=== PATIENT | female | born 1940 | race Caucasian/White ===

== ENCOUNTER 2016-12-05 16:28 | Emergency (ER) | payer OTHER ==
[2016-12-05 16:38] VITALS: RESP 16
--- NOTE | 2016-12-05 16:47 | CPEKG ---
Heart Rate: 77 RR Interval: 779 P-R Interval: 156 QRSD Interval: 90 QT Interval: 368 QTC Interval: 417 P [place]: 39 QRS [place]: 18 T Wave [place]: 34 EKG Severity - ABNORMAL ECG - EKG Impression: SINUS RHYTHM EKG Impression: MULTIPLE ATRIAL PREMATURE COMPLEXES Electronically Signed By: Chavo Zarco 05-Dec-2016 19:10:10
[2016-12-05] MEDS ORDERED: NS 500 ML IV ONE (17:10)
[2016-12-05] MEDS ORDERED: ASPIRIN 81 MG CHEWABLE TAB PO ONE (17:10)
--- NOTE | 2016-12-05 17:13 | EDPHY ---
H & P Stated Complaint: right sided CP since 1400 today Time Seen by Provider: 12/05/16 16:46 HPI/ROS: CHIEF COMPLAINT: Epigastric pain HISTORY OF PRESENT ILLNESS: The patient is a 76-year-old healthy female who comes to the emergency department complaining of epigastric discomfort that began around 2:00 p.m.. It began while she was walking at a rapid speed. She states that she has had this discomfort to 3 x 4 usually at night. She thought that it may be heartburn but it is different than her typical heartburn. He does not have an acidic type feeling. She thinks that maybe gas or possibly from an upper respiratory tract infection she has had for the last 2 weeks. She states that it has been improving on Mucinex. She has not been febrile. She has not been coughing. She denies shortness of breath. She denies diaphoresis. The pain does not radiate. She classifies her pain is mild. She has never had any cardiac disease. She has a history of cholecystectomy and gallstone pancreatitis in 2000 but no problems since. No nausea, vomiting or diarrhea. REVIEW OF SYSTEMS: Constitutional: denies: chills, fever, recent illness, recent injury EENTM: denies: blurred vision, double vision, nose congestion Respiratory: denies: cough, shortness of breath Cardiac: See HPI, no irregular heart rate, lightheadedness, palpitations Gastrointestinal/Abdominal: See HPI Genitourinary: denies: dysuria, frequency, hematuria, pain Musculoskeletal: denies: joint pain, muscle pain Skin: denies: lesions, rash, jaundice, bruising Neurological: denies: headache, numbness, paresthesia, tingling, dizziness, weakness Hematologic/Lymphatic: denies: blood clots, easy bleeding, easy bruising Immunologic/allergic: denies: HIV/AIDS, transplant EXAM: GENERAL: Well-appearing, well-nourished and in no acute distress. HEAD: Atraumatic, normocephalic. EYES: Pupils equal round and reactive to light, extraocular movements intact, sclera anicteric, conjunctiva are normal. ENT: TMs normal, nares patent, oropharynx clear without exudates. Moist mucous membranes. NECK: Normal range of motion, supple without lymphadenopathy or JVD. LUNGS: Breath sounds clear to auscultation bilaterally and equal. No wheezes rales or rhonchi. HEART: Regular rate and rhythm without murmurs, rubs or gallops. ABDOMEN: Soft, nontender, normoactive bowel sounds. No guarding, no rebound. No masses appreciated. BACK: No CVA tenderness, no spinal tenderness, step-offs or deformities EXTREMITIES: Normal range of motion, no pitting or edema. No clubbing or cyanosis. NEUROLOGICAL: Cranial nerves II through XII grossly intact. Normal speech, normal gait. 5/5 strength, normal movement in all extremities, normal sensation PSYCH: Normal mood, normal affect. SKIN: Warm, dry, normal turgor, no visible rashes or lesions. Source: Patient Exam Limitations: No limitations - Personal History Current Tetanus/Diphtheria Vaccine: Unsure Current Tetanus Diphtheria and Acellular Pertussis (TDAP): Unsure - Medical/Surgical History Hx Asthma: No Hx Chronic Respiratory Disease: No Hx Diabetes: No Hx Cardiac Disease: No Hx Renal Disease: No Hx Cirrhosis: No Hx Alcoholism: No Hx HIV/AIDS: No Hx Splenectomy or Spleen Trauma: No Other PMH: back surgery, fractures R hip 2001, pancreatitis - Family History Significant Family History: Hypertension - Social History Smoking Status: Never smoked Alcohol Use: Sober Drug Use: None Constitutional: Initial Vital Signs Temperature (C) 37.0 C 12/05/16 16:33 Heart Rate 85 12/05/16 16:33 Respiratory Rate 16 12/05/16 16:33 Blood Pressure 197/111 H 12/05/16 16:33 O2 Sat (%) 97 12/05/16 16:33 O2 Delivery Mode Room Air Allergies/Adverse Reactions: orphenadrine citrate [From Norflex] Allergy (Verified 07/30/15 10:49) Penicillins Allergy (Verified 07/30/15 10:49) Home Medications: Medication Instructions Recorded SIMVASTATIN 07/30/15 Medical Decision Making - Diagnostics EKG Interpretation: An EKG obtained and was read and documented in trace view. Please see trace view for full reading and report. Sinus rhythm, premature atrial complex, no acute ischemic changes. Imaging: Results: CT scan of the chest angiogram was obtained. The results of the study are negative for PE. The study was read by Dr. Mj Gimenez. I viewed the images myself on the PACS system. X-ray: chest x-ray was obtained. I viewed the images myself on the PACS system. My interpretation of the images is: negative for acute disease . The radiologist interpretation is pending. ED Course/Re-evaluation: 7:10 p.m. we discussed the patient's CT and lab results which are reassuring. She feels much better. She is currently symptom free. She is eager to go home. I recommended admission for rule out versus is a delta troponin. She agrees to stay and have her 2nd troponin drawn at 8:00 p.m.. This should get does down to a myocardial infarction miss rate of only 5-6%. She feels comfortable with this. She has an appointment to follow up with her doctor tomorrow and will schedule an outpatient stress test with them. I agree with this plan. 8:55 p.m. the patient is repeat troponin is negative. This is reassuring since her pain began 7 hours ago discussed strict return precautions. Additional verbal discharge instructions given. Differential Diagnosis: Partial list of the Differential diagnosis considered include but were not limited to; acute coronary disease, PE, indigestion, gas, GERD and although unlikely based on the history and physical exam, I also considered peptic ulcer , dissection, aneurysm, pneumonia. I discussed these differential diagnoses and the plan with the patient as well as the usual and expected course. The patient understands that the diagnosis is provisional and that in medicine we are not always correct and that further workup is often warranted. Usual and customary warnings were given. All of the patient's questions were answered. The patient was instructed to return to the emergency department should the symptoms at all worsen or return, otherwise to followup with the physician as we discussed. - Data Points Laboratory Results: Laboratory Results 12/05/16 16:55 12/05/16 16:55 12/05/16 12/05/16 20:00 16:55 WBC 4.98 10^3/uL (3.80-9.50) RBC 4.59 10^6/uL (4.18-5.33) Hgb 14.8 g/dL (12.6-16.3) Hct 42.7 % (38.0-47.0) MCV 93.0 fL (81.5-99.8) MCH 32.2 pg (27.9-34.1) MCHC 34.7 g/dL (32.4-36.7) RDW 13.6 % (11.5-15.2) Plt Count 211 10^3/uL (150-400) MPV 9.7 fL (8.7-11.7) Neut % (Auto) 60.3 % (39.3-74.2) Lymph % (Auto) 27.3 % (15.0-45.0) [place] % (Auto) 8.2 % (4.5-13.0) Eos % (Auto) 3.0 % (0.6-7.6) Baso % (Auto) 1.0 % (0.3-1.7) Nucleat RBC Rel Count 0.0 % (0.0-0.2) Absolute Neuts (auto) 3.00 10^3/uL (1.70-6.50) Absolute Lymphs (auto) 1.36 10^3/uL (1.00-3.00) Absolute Monos (auto) 0.41 10^3/uL (0.30-0.80) Absolute Eos (auto) 0.15 10^3/uL (0.03-0.40) Absolute Basos (auto) 0.05 10^3/uL (0.02-0.10) Absolute Nucleated RBC 0.00 10^3/uL (0-0.01) Immature Gran % 0.2 % (0.0-1.1) Immature Gran # 0.01 10^3/uL (0.00-0.10) PT 11.9 L SEC (12.0-15.0) INR 0.89 (0.83-1.16) APTT 20.0 L SEC (23.0-38.0) D-Dimer 0.58 H ug/mLFEU (0.00-0.50) Sodium 139 mEq/L (134-144) Potassium 4.5 mEq/L (3.5-5.2) Chloride 100 mEq/L (97-110) Carbon Dioxide 28 mEq/l (22-31) Anion Gap 11 mEq/L (8-16) BUN 21 mg/dL (7-23) Creatinine 0.8 mg/dL (0.6-1.0) Estimated GFR > 60 Glucose 88 mg/dL (70-100) Calcium 11.0 H mg/dL (8.5-10.4) Phosphorus 4.1 mg/dL (2.5-4.5) Total Bilirubin 0.5 mg/dL (0.1-1.4) Conjugated Bilirubin 0.1 mg/dL (0.0-0.5) Unconjugated Bilirubin 0.4 mg/dL (0.0-1.1) AST 31 IU/L (14-46) ALT 31 IU/L (9-52) Alkaline Phosphatase 116 IU/L (38-126) Troponin I < 0.012 ng/mL < 0.012 ng/mL (0-0.034) (0-0.034) Total Protein 6.9 g/dL (6.3-8.2) Albumin 4.1 g/dL (3.5-5.0) Lipase 107.0 IU/L (23-300) Medications Given: Discontinued Medications Aspirin (Aspirin) 324 mg PO EDNOW ONE Stop: 12/05/16 17:11 Last Admin: 12/05/16 18:31 Dose: 324 mg Sodium Chloride (Ns) 500 mls @ 0 mls/hr IV ONCE ONE PRN Reason: As Directed Stop: 12/05/16 17:11 Last Admin: 12/05/16 18:32 Dose: 500 mls Departure - Departure Disposition: Home, Routine, Self-Care Clinical Impression: Chest pain Qualifiers: Chest pain type: unspecified Qualifier Code: (R07.9) Chest pain, unspecified Condition: Fair Instructions: Chest Pain (ED) Referrals: Elizabeth Joyner MD [Primary Care Provider] - As per Instructions (Follow-up tomorrow and schedule a stress test as discussed.)
[2016-12-05 17:22] LABS: % IMMATURE GRANULYOCYTES 0.2 % (0.0-1.1); ABSOLUTE IMMATURE GRANULOCYTES 0.01 10^3/uL (0.00-0.10); ADD DIFF? NO; ADD MORPH? NO; ADD SCAN? NO; ATYPICAL LYMPHOCYTE FLAG 0 (0-99); FRAGMENT RBC FLAG 0 (0-99); HEMATOCRIT 42.7 % (38.0-47.0); HEMOGLOBIN 14.8 g/dL (12.6-16.3); LEFT SHIFT FLG 0 (0-99); LIPEMIA HEMOLYSIS FLAG 90 (0-99); MEAN CELL HEMOGLOBIN 32.2 pg (27.9-34.1); MEAN CELL HEMOGLOBIN CONCENTR. 34.7 g/dL (32.4-36.7); MEAN PLATELET VOLUME 9.7 fL (8.7-11.7); PLATELET CLUMPS FLAG 0 (0-99); PLATELET COUNT 211 10^3/uL (150-400); RED BLOOD CELL COUNT 4.59 10^6/uL (4.18-5.33); RED CELL DISTRIBUTION WIDTH 13.6 % (11.5-15.2)
[2016-12-05 17:23] LABS: ALANINE AMINOTRANSFERASE 31 IU/L (9-52); ALBUMIN 4.1 g/dL (3.5-5.0); ALKALINE PHOSPHATASE 116 IU/L (38-126); ANION GAP 11 mEq/L (8-16); ASPARTATE AMINOTRANSFERASE 31 IU/L (14-46); BILIRUBIN,TOTAL 0.5 mg/dL (0.1-1.4); BILIRUBIN-CONJUGATED 0.1 mg/dL (0.0-0.5); BILIRUBIN-UNCONJUGATED 0.4 mg/dL (0.0-1.1); CARBON DIOXIDE 28 mEq/l (22-31); CHLORIDE 100 mEq/L (97-110); CREATININE 0.8 mg/dL (0.6-1.0); GLOMERULAR FILTRATION RATE > 60; GLUCOSE 88 mg/dL (70-100); POTASSIUM 4.5 mEq/L (3.5-5.2); SODIUM 139 mEq/L (134-144); TOTAL PROTEIN 6.9 g/dL (6.3-8.2)
[2016-12-05 17:33] LABS: INR 0.89 (0.83-1.16); PROTIME(PATIENT) 11.9 SEC (12.0-15.0)
[2016-12-05 17:34] LABS: TROPONIN I < 0.012 ng/mL (0-0.034)
[2016-12-05] MEDS ORDERED: IOPAMIDOL (ISOVUE 370) 75 ML BTL IV ONE (18:23)
--- NOTE | 2016-12-05 18:26 | DX ---
PA and Lateral Chest December 05, 2016 History: Chest pain. Findings: The heart and mediastinum are normal. Pulmonary vascularity is normal. No focal pulmonar y consolidation is seen. Minimal left basilar opacity is probably atelectasis. There is no pleural fluid. A pneumothorax is not identified. Minimal scoliosis and mild spinal degenerative changes are seen. Surgical clips in the right upper quadrant presumably relate to prior cholecystectomy. Impression: Chest negative for acute abnormality.
--- NOTE | 2016-12-05 19:36 | CT ---
CT Pulmonary Angiogram Clinical Indications: Chest pain in a 76-year-old female with a history of recent surgery and a bord lupis abnormal D-dimer. Technique: Thinly collimated multidetector helical CT imaging was performed through the chest while 85 mL of Isovue-[id number] were injected intravenously without complication. The images were obtained at 4 mm thickness and reconstructed at 1.5 mm thickness. Sagittal and coronal reconstructions were perform ed. The examination is reviewed on the workstation by the interpreting physician at multiple window/l evel settings. Dose reduction techniques were utilized. Findings: Chest: No focal pulmonary consolidation is identified. There is minimal dependent basilar atelectasis . Heart size is normal. No pericardial or pleural effusions are seen. Hilar and mediastinal contour s are normal. There are no masses or noncalcified pulmonary nodules. There is a well-circumscribed low-attenuation area involving the lower pole of the left kidney which would correlate well with a simple cyst identified on MRI of the lumbar spine performed August 27. Also, there is a 8 mm diameter, well-circumscribed low-attenuation region in the dome of the live r which is statistically a simple cyst. The upper abdomen is negative for acute abnormality on this arterial phase study. CT Pulmonary Angiogram: The pulmonary arterial system is fairly well opacified. No intraluminal fi lling defects are seen to suggest acute or chronic thrombopulmonary embolic disease. No vascular malf ormations are seen. The thoracic aorta has a normal contour without evidence of aneurysm or dissecti on. Impression: 1. No evidence of thrombopulmonary embolic disease. 2. See above report for additional findings. A preliminary report was called to Dr. Chavo Zarco at 1900 hours in the Emergency Department.
[2016-12-05 20:23] VITALS: O2SAT 96
[2016-12-05 21:14] VITALS: BP 143/85; PULSE 81; TEMP 98.2
== END 2016-12-05 21:14 | disposition home or self-care (01) ==
DX: R07.9 Chest pain, unspecified (principal)
CPT/HCPCS: Q9967

== ENCOUNTER → 2017-06-21 | Outpatient (CLI) | payer OTHER | LOC: FIMAGING 10:42 | PROVIDERS: ATTEND Physician Assistant Medical | DX: M25.752 Osteophyte, left hip (principal); M25.762 Osteophyte, left knee; M25.761 Osteophyte, right knee ==

== ENCOUNTER → 2017-08-05 | Outpatient (CLI) | payer OTHER | LOC: FIMAGING 14:58 | PROVIDERS: ATTEND Physician Assistant Medical | DX: R93.7 Abnormal findings on diagnostic imaging of other parts of musculoskeletal system (principal); M25.562 Pain in left knee ==

== ENCOUNTER → 2017-08-08 | Outpatient (CLI) | payer OTHER | LOC: FIMAGING 06:56 | PROVIDERS: ATTEND Physician Assistant Medical | DX: S83.242A Other tear of medial meniscus, current injury, left knee, initial encounter (principal); S83.282A Other tear of lateral meniscus, current injury, left knee, initial encounter; M84.352A Stress fracture, left femur, initial encounter for fracture; W19.XXXA Unspecified fall, initial encounter; M25.462 Effusion, left knee; M71.22 Synovial cyst of popliteal space [Baker], left knee ==

== ENCOUNTER → 2017-11-15 | Outpatient (CLI) | payer OTHER | LOC: FIMAGING 09:20 | PROVIDERS: ATTEND Internal Medicine | DX: Z12.31 Encounter for screening mammogram for malignant neoplasm of breast (principal); Z80.3 Family history of malignant neoplasm of breast | CPT/HCPCS: G0202 ==

== ENCOUNTER → 2018-11-21 | Outpatient (CLI) | payer OTHER | LOC: FIMAGING 10:56 | PROVIDERS: ATTEND Internal Medicine | DX: Z12.31 Encounter for screening mammogram for malignant neoplasm of breast (principal); Z80.3 Family history of malignant neoplasm of breast ==

== ENCOUNTER → 2018-12-31 | Outpatient (CLI) | payer OTHER | LOC: FIMAGING 09:38 | PROVIDERS: ATTEND Internal Medicine | DX: Z13.820 Encounter for screening for osteoporosis (principal); M81.0 Age-related osteoporosis without current pathological fracture; K21.9 Gastro-esophageal reflux disease without esophagitis; E78.00 Pure hypercholesterolemia, unspecified; Z78.0 Asymptomatic menopausal state; Z96.641 Presence of right artificial hip joint ==

== ENCOUNTER → 2019-01-20 | Outpatient (CLI) | payer OTHER | LOC: FIMAGING 11:31 | PROVIDERS: ATTEND Registered Nurse | DX: M41.86 Other forms of scoliosis, lumbar region (principal); M51.37 Other intervertebral disc degeneration, lumbosacral region; M53.87 Other specified dorsopathies, lumbosacral region ==

== ENCOUNTER → 2019-01-27 | Outpatient (CLI) | payer OTHER | LOC: FIMAGING 11:51 | PROVIDERS: ATTEND Physician Assistant | DX: M51.36 Other intervertebral disc degeneration, lumbar region (principal); M48.07 Spinal stenosis, lumbosacral region; M54.18 Radiculopathy, sacral and sacrococcygeal region ==

== ENCOUNTER → 2019-02-11 | Outpatient (CLI) | payer OTHER | LOC: FIMAGING 07:52 | PROVIDERS: ATTEND Internal Medicine | DX: N28.1 Cyst of kidney, acquired (principal) ==